=== PATIENT | male | born 1975 | race Hispanic/Latino ===

== ENCOUNTER 2017-12-26 01:33 | Emergency (ER) | payer OTHER ==
[2017-12-26] MEDS ORDERED: LIDOCAINE VISCOUS 2% SOLN 15 ML UDC ONE (03:08)
[2017-12-26] MEDS ORDERED: MAGNE/ALUM HYDROXD 30 ML UCUP ONE (03:08)
[2017-12-26 03:12] LABS: Absolute Lymphocytes (CBC) 1.7 K/uL (0.7-4.9); Absolute Monocytes 0.7 K/uL (0.1-1.3); Absolute Neutrophil 5.2 K/uL (1.8-8.0); Basophils % 0.8 % (0-1.3); Eosinophils % 3.2 % (0-4.4); Hematocrit 45.6 % (39.6-49.0); Lymphocytes % 21.1 % (15.3-44.8); MCH 31.2 pg (27.0-35.0); MCV 93.7 fL (80-100); MPV 10.9 fL (7.6-11.3); RBC Red Blood Cell Count 4.86 M/uL (4.33-5.43)
[2017-12-26 03:27] LABS: ALT/SGPT 67 IU/L (10-60); AST/SGOT 31 IU/L (10-42); Alkaline Phosphatase 65 IU/L (42-121); Amylase Level 92 U/L (28-100); BUN Blood Urea Nitrogen 16 mg/dL (6-20); Bicarbonate 27 mEq/L (21-31); Bilirubin Direct 0.1 mg/dL (0-0.2); Bilirubin Total 0.6 mg/dL (0.3-1.2); Glucose Level 111 mg/dL (65-120); Lipase 33 U/L (22-51); Potassium 3.9 mEq/L (3.6-5.0); Protein, Total 6.8 g/dL (6.0-8.3); Sodium Level 138 mEq/L (135-145)
[2017-12-26 03:41] LABS: Urine Bacteria <20 /HPF (NONE SEEN); Urine Culture Reflex Order NOT NEEDED; Urine RBC NONE SEEN /HPF (NONE SEEN)
[2017-12-26 03:42] LABS: Urine Blood NEGATIVE (NEG); Urine Glucose NEGATIVE (NEG); Urine Protein NEGATIVE (NEG); Urine pH 6.5 (5.0-7.0)
--- NOTE | 2017-12-26 04:16 | ER ---
Nurse's Notes [facility] Name: Yovani Barr Age: 42 yrs Sex: Male : 1975 Arrival Date: 12/26/2017 Time: 01:43 Bed 13 Private MD: Diagnosis: Gastritis, unspecified, without bleeding Presentation: 12/26 01:56 Presenting complaint: Patient states: upper abd pain that radiates to back since aa1 yesterday afternoon. Denies N/V/D. Reports hx of ulcers. Transition of care: patient was not received from another setting of care. Onset of symptoms was December 25, 2017. Care prior to arrival: None. 01:56 Method Of Arrival: Ambulatory aa1 01:56 Acuity: MICHEL 3 aa1 Triage Assessment: 01:57 General: Appears in no apparent distress. comfortable, Behavior is calm, cooperative, aa1 appropriate for age. Historical: - Allergies: 01:57 No Known Allergies; aa1 - Home Meds: 01:57 lisinopril 10 mg Oral tab 1 tab once daily [Active]; omeprazole 40 mg Oral cpDR 1 cap aa1 once daily [Active]; - PMHx: 01:57 GERD; Hypertension; aa1 - PSHx: 01:57 None; aa1 - Immunization history:: Flu vaccine is not up to date. - Social history:: Smoking status: Patient uses tobacco products, smokes one-half pack cigarettes per day. Screenin:30 Abuse screen: Denies threats or abuse. Nutritional screening: No deficits noted. kb1 Tuberculosis screening: No symptoms or risk factors identified. Fall Risk IV access (20 points). Assessment: 02:30 General: Appears in no apparent distress. Behavior is calm, cooperative. Pain: kb1 Complains of pain in epigastric area. Neuro: Level of Consciousness is awake, alert, obeys commands, Oriented to person, place, time, situation. Cardiovascular: Patient's skin is warm and dry. Respiratory: Airway is patent. GI: Bowel sounds present X 4 quads. Abd is soft Abd is non tender. : No signs and/or symptoms were reported regarding the genitourinary system. 03:19 Reassessment: RECD REPORT FROM SHIREEN REESE. 42YO HM P/W ABD PAIN, AWAITING RESULTS AND bp S/S RESOLUTION. 04:28 Reassessment: PT D/C HOME AMBULATORY WITH FAMILY, DX WITH GASTRITIS. bp Vital Signs: 01:57 BP 134 / 91; Pulse 63; Resp 18; Temp 98.7; Pulse Ox 98% on R/A; Weight 76.2 kg; Height aa1 5 ft. 4 in. (162.56 cm); Pain 7/10; 04:00 BP 117 / 85; Pulse 64; Resp 16; Pulse Ox 97% ; bp 01:57 Body Mass Index 28.84 (76.20 kg, 162.56 cm) aa1 ED Course: 01:43 Patient arrived in ED. es 01:57 Triage completed. aa1 01:57 Arm band placed on right wrist. Patient placed in an exam room, on a stretcher. aa1 02:08 Shireen Aguilar, HUGH is Primary Nurse. kb1 02:08 Cleveland Morgan MD is Attending Physician. tw4 02:30 Patient has correct armband on for positive identification. Bed in low position. Call kb1 light in reach. Side rails up X 1. Pulse ox on. NIBP on. 02:39 EKG done, by ED staff, reviewed by Cleveland Morgan MD. kb1 02:53 No provider procedures requiring assistance completed. Inserted saline lock: 20 gauge kb1 in right antecubital area, using aseptic technique. Blood collected. 03:19 Primary Nurse role handed off by Shireen Aguilar, HUGH bp 03:19 Shai Mckenzie, RN is Primary Nurse. bp 03:27 Report given to Shai REESE. kb1 04:28 IV discontinued, intact, bleeding controlled, No redness/swelling at site. Pressure bp dressing applied. Administered Medications: 02:54 Drug: GI Cocktail without - (Maalox Suspension 30 ml, Lidocaine Liquid 2 % 15 kb1 ml) Route: PO; 04:14 Follow up: Response: No adverse reaction bp 04:27 Drug: ProTONIX 40 mg Route: IVP; Site: right antecubital; bp 04:27 Follow up: Response: Medication administered at discharge. bp Outcome: 04:15 Discharge ordered by . tw4 04:29 Discharged to home ambulatory, with family. bp 04:29 Condition: stable 04:29 Discharge instructions given to patient, Instructed on discharge instructions, follow up and referral plans. medication usage, Demonstrated understanding of instructions, follow-up care, medications, Prescriptions given X 1. 04:29 Patient left the ED. bp Signatures: Naa Michel RN RN aa1 Mei Moreland Brian RN RN bp Cleveland Morgan MD MD tw4 Shireen Aguilar RN RN kb1
--- NOTE | 2017-12-26 04:16 | EDPHYS ---
Physician Documentation [facility] Name: Yovani Barr Age: 42 yrs Sex: Male : 1975 Arrival Date: 12/26/2017 Time: 01:43 Bed 13 Private MD: ED Physician Cleveland Morgan HPI: 12/26 02:58 This 42 yrs old Male presents to ER via Ambulatory with complaints of tw4 Abdominal Pain, Back Pain. 02:58 The patient presents with abdominal pain. The patient presents with abdominal pain in tw4 the epigastric area. Onset: The symptoms/episode began/occurred today. The symptoms do not radiate. Associated signs and symptoms: none. The symptoms are described as sharp. Modifying factors: The symptoms are alleviated by nothing, the symptoms are aggravated by alcohol. The patient has not experienced similar symptoms in the past. Historical: - Allergies: 01:57 No Known Allergies; aa1 - Home Meds: 01:57 lisinopril 10 mg Oral tab 1 tab once daily [Active]; omeprazole 40 mg Oral cpDR 1 cap aa1 once daily [Active]; - PMHx: 01:57 GERD; Hypertension; aa1 - PSHx: 01:57 None; aa1 - Immunization history:: Flu vaccine is not up to date. - Social history:: Smoking status: Patient uses tobacco products, smokes one-half pack cigarettes per day. ROS: 02:58 Constitutional: Negative for fever, chills, and weight loss, Eyes: Negative for injury, tw4 pain, redness, and discharge, Cardiovascular: Negative for chest pain, palpitations, and edema, Respiratory: Negative for shortness of breath, cough, wheezing, and pleuritic chest pain. 02:58 MS/Extremity: Negative for injury and deformity, Skin: Negative for injury, rash, and discoloration, Neuro: Negative for headache, weakness, numbness, tingling, and seizure. 02:58 Abdomen/GI: Positive for abdominal pain, Negative for nausea and vomiting, nausea, vomiting, and diarrhea, black/tarry stool, rectal bleeding. 02:58 Back: Positive for pain at rest, Negative for injury or acute deformity, decreased range of motion, pain with movement, radiated pain. Exam: 02:58 Constitutional: This is a well developed, well nourished patient who is awake, alert, tw4 and in no acute distress. Head/Face: Normocephalic, atraumatic. Chest/axilla: Normal chest wall appearance and motion. Nontender with no deformity. No lesions are appreciated. Cardiovascular: Regular rate and rhythm with a normal S1 and S2. No gallops, murmurs, or rubs. Normal PMI, no JVD. No pulse deficits. Respiratory: Lungs have equal breath sounds bilaterally, clear to auscultation and percussion. No rales, rhonchi or wheezes noted. No increased work of breathing, no retractions or nasal flaring. 02:58 Back: No spinal tenderness. No costovertebral tenderness. Full range of motion. MS/ Extremity: Pulses equal, no cyanosis. Neurovascular intact. Full, normal range of motion. Neuro: Awake and alert, GCS 15, oriented to person, place, time, and situation. Cranial nerves II-XII grossly intact. Motor strength 5/5 in all extremities. Sensory grossly intact. Cerebellar exam normal. Normal gait. 02:58 Abdomen/GI: Inspection: abdomen appears normal, Bowel sounds: normal, Palpation: moderate abdominal tenderness, in the epigastric area. 04:13 ECG was reviewed by the Attending Physician. tw4 Vital Signs: 01:57 BP 134 / 91; Pulse 63; Resp 18; Temp 98.7; Pulse Ox 98% on R/A; Weight 76.2 kg; Height aa1 5 ft. 4 in. (162.56 cm); Pain 7/10; 04:00 BP 117 / 85; Pulse 64; Resp 16; Pulse Ox 97% ; bp 01:57 Body Mass Index 28.84 (76.20 kg, 162.56 cm) aa1 MDM: 02:08 Patient medically screened. tw4 04:13 Differential diagnosis: coronary artery disease, Cholelithiasis, gastritis, tw4 gastroesophageal reflux disease, non-specific abd pain, pancreatitis, Peptic Ulcer Disease, Perf. Duodenal Ulcer, Perf. Gastric Ulcer. Data reviewed: vital signs, nurses notes. Data interpreted: equipment monitor phototypesetting: rhythm is normal sinus rhythm, Pulse oximetry: Interpretation: normal. Counseling: I had a detailed discussion with the patient and/or guardian regarding: the historical points, exam findings, and any diagnostic results supporting the discharge/admit diagnosis, lab results. Medication response: GI Cocktail relieved the patient's pain. The symptoms have resolved. Response to treatment: the patient's symptoms have resolved after treatment, and as a result, I will discharge patient. Special discussion: I discussed with the patient/guardian in detail that at this point there is no indication for admission to the hospital. It is understood, however, that if the symptoms persist or worsen the patient needs to return immediately for re-evaluation. 12/26 02:25 Order name: Amylase, Serum; Complete Time: 04:13 4 12/26 02:25 Order name: Basic Metabolic Panel; Complete Time: 04:12/26 02:25 Order name: CBC with Diff; Complete Time: 04: tw12/26 02:25 Order name: Creatinine for Radiology; Complete Time: 04:12/26 02:25 Order name: Hepatic Function; Complete Time: 04:12/26 02:25 Order name: Lipase; Complete Time: 04:13 tw12/26 02:25 Order name: Urine Microscopic Only; Complete Time: 04:12/26 02:25 Order name: IV Saline Lock; Complete Time: 02:54 tw4 12/26 02:25 Order name: Labs collected and sent; Complete Time: 02:54 tw12/26 02:26 Order name: Urine Dipstick--Ancillary (enter results); Complete Time: 04:13 em1 12/26 02:28 Order name: Troponin (emerg Dept Use Only); Complete Time: 04:13 12/26 02:25 Order name: Urine Dipstick-Ancillary (obtain specimen); Complete Time: 02:26 tw4 EC:13 Rate is 66 beats/min. Rhythm is regular. QRS [place] is Normal. OH interval is normal. QRS tw4 interval is normal. QT interval is normal. No Q waves. T waves are Normal. No ST changes noted. Clinical impression: Normal ECG and No evidence of ischemia. Interpreted by me. Reviewed by me. Administered Medications: 02:54 Drug: GI Cocktail without - (Maalox Suspension 30 ml, Lidocaine Liquid 2 % 15 kb1 ml) Route: PO; 04:14 Follow up: Response: No adverse reaction bp 04:27 Drug: ProTONIX 40 mg Route: IVP; Site: right antecubital; bp 04:27 Follow up: Response: Medication administered at discharge. bp Disposition: 12/26/17 04:15 Discharged to Home. Impression: Gastritis, unspecified, without bleeding. - Condition is Stable. - Discharge Instructions: Gastritis, Adult. - Prescriptions for Protonix 40 mg Oral Tablet - take 1 tablet by ORAL route once daily; 30 tablet. - Medication Reconciliation Form, Thank You Letter, Antibiotic Education, Prescription Opioid Use form. - Follow up: Private Physician; When: As needed; Reason: If symptoms return, Recheck today's complaints, Continuance of care, Re-evaluation by your physician. - Problem is an ongoing problem. - Symptoms have improved. Signatures: Dispatcher [employer] EDMS Naa Michel RN RN aa1 Ceasar Myers em1 Shai Mckenzie RN RN bp Cleveland Morgan MD MD tw4 Diana Aguilar RN RN kb1 Corrections: (The following items were deleted from the chart) 02:26 02:26 Urine Dipstick-Ancillary ordered. em1 em1
[2017-12-26 04:37] VITALS: TEMP 98.7
[2017-12-26 04:38] VITALS: BP 117/85; O2SAT 97
[2017-12-26] MEDS ORDERED: PANTOPRAZOLE 40 MG INJ ONE (04:40)
--- NOTE | 2017-12-26 12:02 | EKG ---
Test Date: 2017-12-26 Test Time: 02:39:04 Podiatric Medicine Doctor: JUJU MEASUREMENT RESULTS: Intervals: Rate: 66 WV: 198 QRSD: 86 QT: 374 QTc: 392 [place]: P: -6 WV: 198 QRS: 24 T: 8 INTERPRETIVE STATEMENTS: Normal sinus rhythm Normal ECG Compared to ECG 11/07/2017 17:42:12 Prolonged QT interval no longer present Electronically Signed On 12-26-17 12:02:11 CDT by Prosper Riojas
== END 2017-12-26 04:29 | disposition home or self-care (01) ==
LOC: ER 01:33
DX: K29.70 Gastritis, unspecified, without bleeding (principal); I10 Essential (primary) hypertension; K21.9 Gastro-esophageal reflux disease without esophagitis; F17.210 Nicotine dependence, cigarettes, uncomplicated
CPT/HCPCS: 36415; 80048; 80076; 81003; 81015; 82150; 83690; 84484; 85025; 93005; 96374; 99284; C9113

== ENCOUNTER 2023-08-09 12:15 | Emergency (ER) | payer OTHER ==
--- OUTSIDE RECORDS SUMMARY | 2023-08-09 12:18 | XMS REPORT | Continuity of Care Document ---
:1975 Author Organization [facility] t Address [address] [place] [address] Care Team Providers Name Role Phone Unavailable Unavailable Unavailable Problems This patient has no known problems. Allergies, Adverse Reactions, Alerts This patient has no known allergies or adverse reactions. Medications This patient has no known medications. Procedures This patient has no known procedures. Encounters Start End Encounter Admission Attending Care Care Encounter Source Date/Time Date/Time Type Type Clinicians Facility Department ID 2023-01-24 2023-01-24 Outpatient SFA SFA [id number] [place] 10:48:36 10:48:36 [id number] [facility] [place] 2023-01-10 2023-01-10 Outpatient SFA SFA [id number] [place] 09:14:17 09:14:17 0422 [facility] [place] 2023-01-03 2023-01-03 Outpatient SFA SFA [id number] [place] 09:53:56 09:53:56 [id number] [facility] [place] 2022-12-20 2022-12-20 Outpatient SFA SFA [id number] [place] 09:29:59 09:29:59 [id number] [facility] 2022-12-18 2022-12-18 Outpatient SFA SFA [id number] [place] 08:39:33 08:39:33 0330 [facility] [place] 2022-12-11 2022-12-11 Outpatient SFA SFA [id number] [place] 14:35:57 14:35:57 [id number] [facility] 2022-12-10 2022-12-10 Outpatient SFA SFA [id number] [place] 16:22:37 16:22:37 [id number] [facility] Results Test Description Test Time Test Comments Results Result Comments Source [facility] 2022-12-22 02:40:22 Test Item Value Reference Range Interpretation Comme nts TESTOSTERONE (test code = 295 NG/DL 300-890 L * [facility] has important pathology 2830) staff changes e ffective 11/19/2022. New patholo gy staff will provide uninterrupted, excellent patient care and clinical c onsultation. See URL: [email or web address]. UNLESS OTHERWIS E INDICATED, ALL TESTING PERFORM ED AT CLINICAL PATHOLOGY [facility]. [address] [place] [address] CLAM GROWER: CASA LEYVA M.D. CLIA NUMBER [id number] CAP ACCREDITATION N O. [id number] 06:52:57 Test Item Value Reference Range Interpretation Comments TESTOSTERONE (test 347 NG/DL 300-[address] [facility] has important code = 2830) pathology staff changes effecti ve 11/19/2022. New pathology staff will provide uninter rupted, excellent patie nt care and clinical consultation. S ee URL: [email or web address]. UNLES S OTHERWISE INDIC ATED, ALL TESTING PER FORMED AT CLINICAL [facility] [employer], [facility]. [address] [place] [address] [facility] DIRECTOR: CASA LEYVA M.D. C CARLITA NUMBER [id number] CAP ACCREDITATION N O. [id number] LIPID [id number] 06:07:26 Test Item Value Reference Range Interpretation Comments CHOLESTEROL (test 136 MG/DL <200 code = 2210) TRIGLYCERIDES (test 52 MG/DL <150 code = 2232) HDL CHOLESTEROL (test 54 MG/DL >39 code = 2220) CALC LDL CHOL (test 69 MG/DL <100 NOTE: C ALCULATED LDL code = 2237) IS BASED ON RUTH-HELLER METHOD WHICHINCLUDES ADJUSTABLE TRIGLYCERIDE:VL DL CHOLESTEROL RAT IO.THIS FACTOR VARIES B Y MEASURED TRIGLY CERIDE AND NON-HDLCHOL ESTEROL CONCENTRATIONS WITH INCREASED CALCU LATED LDL SEENIN HIGH ER TRIGLYCERIDE OR LOWER NON-HDL SPECIME NS. FOR MOREINFORMATION , SEE CLIENT ANNOUNCE MENT AT [email or web address] RATIO LDL/HDL 1.28 RATIO <3.55 (test code = 2238) COMPREHENSIVE METABOLIC [id number] 06:07:26 Test Item Value Reference Range Interpretation Comments GLUCOSE (test code = 105 MG/DL 70-99 H 2216) BUN (test code = 9 MG/DL 6-20 2207) CREATININE (test 0.89 MG/DL 0.80-1.40 code = 2214) eGFR (2020 CKD-EPI) 106 >60 (test code = 21925) ML/MIN/1.73 CALC BUN/CREAT (test 10 RATIO 6-28 code = 2235) SODIUM (test code = 142 MEQ/L 356-292 5317) POTASSIUM (test code 4.4 MEQ/L 3.5-5.4 = 2227) CHLORIDE (test code 105 MEQ/L 95-107 = 2214) CARBON DIOXIDE (test 25 MEQ/L 19-31 code = 220) CALCIUM (test code = 9.5 MG/DL 8.5-10.5 2208) PROTEIN, TOTAL (test 7.2 G/DL 6.1-8.3 code = 222) ALBUMIN (test code = 4.8 G/DL 3.5-5.2 2200) CALC GLOBULIN (test 2.4 G/DL 1.9-3.7 code = 2240) CALC A/G RATIO (test 2.0 RATIO 1.0-2.6 code = 223) BILIRUBIN, TOTAL 0.4 MG/DL See_Comment [Automated message] (test code = 2207) The syste m which generated this result transmit addy reference range : <=1.2. The refe rence range was not u sed to interpret th is result as normal/abnormal . ALKALINE PHOSPHATASE 68 U/L 40-118 (test code = 2204) AST (test code = 253 U/L 9-50 H 2217) ALT (test code = 517 U/L 5-50 H 2218) VITAMIN D, 25 [id number] 05:36:35 Test Item Value Reference Range Interpretation Comments VITAMIN D, 25 40 NG/ML SEE BELOW EFFECTIVE 09/29/2022, OH (test code PLEASE NOTE NE W METHODOLOGY = 4958) IS ELECTROCH EMILUMINESCENCE BINDING ASSAY. NOTE: 25-HYDROXYVITAM IN D ASSAY INCLUDES 25-HYD ROXYVITAMIN D2 AND D3. I NTERPRETIVE RANGES PED IATRIC (<17 YEARS) . . . . . . . . . . . NG/ML 20-100ADU LT: INSUFFICIENT . . . . . . . . . . . . . . NG/ML <20 SUBOP TIMAL . . . . . . . . . . . . . . . NG/ML 20-29 OPTIMAL . . . . . . . . . . . . . . . . . NG/ML 30-100 [id number] 05:36:13 Test Item Value Reference Range Interpretation Comments TESTOSTERONE (test code = 2830) 270 NG/DL 300-890 L PSA, [id number] 05:35:34 Test Item Value Reference Range Interpretation Comments PSA, TOTAL 0.42 NG/ML See_Comment NOTE: Methodol ogy is Iram (test code = Mauro Electroch emiluminescence 2606) Immunoassay tra ceable to WHO reference stand zackary 96/760. [facility] has importa nt pathology staff changes e ffective 11/19/2022. New pathology staff will prov victorino uninterrupted, excellent patient care an d clinical consultation. S ee URL: [email or web address]. UNLESS OTHERWIS E INDICATED, ALL TESTING PERFORM ED AT CLINICAL PATHOLOGY [facility]. [address] [place] [id number] LABORATORY DIRE CTOR: Lesli HERNANDEZ CARLITA NUMBER [id number] [place]. [id number] [A utomated message] The sy stem which generated this result transmitted ref erence range: <=4.00. The ref erence range was not used to int erpret this result as amparo l/abnormal. CBC W/AUTO DIFF WITH [id number] 04:20:46 Test Item Value Reference Range Interpretation Comments WBC (test code = 5.0 K/UL 3.5-11.0 1001) RBC (test code = 4.52 M/UL 4.50-6.10 1002) HEMOGLOBIN (test code 14.7 G/DL 13.5-17.0 = 1003) HEMATOCRIT (test code 43.3 % 40.0-51.0 = 1004) MCV (test code = 95.8 fL 80.0-99.0 1005) MCH (test code = 32.5 PG 25.0-33.0 1006) MCHC (test code = 33.9 G/DL 31.0-36.0 1007) RDW (test code = 14.3 % 11.5-15.0 1038) NEUTROPHILS (test 41.1 % code = 1008) LYMPHOCYTES (test 34.1 % code = 1010) MONOCYTES (test code 20.4 % = 1011) EOSINOPHILS (test 3.0 % code = 1012) BASOPHILS (test code 1.0 % = 1013) IMMATURE GRANULOCYTES 0.4 % (test code = 1036) NUCLEATED RBCS (test 0.0 /100 WBC'S See_Comment [Aut omated code = 1065) message] The sy stem which generated this result transmitted reference range : 0.0. The refere nce range was not u sed to interpret th is result as normal/abnormal . PLATELET COUNT (test 190 K/UL 130-400 code = 1015) ABSOLUTE NEUTROPHILS 2.07 K/UL 1.50-7.50 (test code = 1066) ABSOLUTE LYMPHOCYTES 1.72 K/UL 1.00-4.00 (test code = 1067) ABSOLUTE MONOCYTES 1.03 K/UL 0.20-1.00 H (test code = 1068) ABSOLUTE EOSINOPHILS 0.15 K/UL 0.00-0.50 (test code = 1040) ABSOLUTE BASOPHILS 0.05 K/UL 0.00-0.20 (test code = 1069) ABS IMMATURE 0.02 K/UL 0.00-0.10 GRANULOCYTES (test code = 1020) ABS NUCLEATED RBCS 0.00 K/UL 0.00-0.11 (test code = 53783) HEMOGLOBIN [id number] 04:14:31 Test Item Value Reference Range Interpretation Comments HEMOGLOBIN A1c (test code = 72126) 5.4 % 4.2-5.6
[2023-08-09 13:26] LABS: Hematocrit 44.3 % (39.6-49.0); MPV 9.4 fL (7.6-11.3); Platelets 169 thou/uL (152-406); RBC Red Blood Cell Count 4.61 M/uL (4.33-5.43)
[2023-08-09] MEDS ORDERED: AMLODIPINE 10 MG TAB ONE (13:27)
[2023-08-09 13:34] LABS: Protime INR 0.98
[2023-08-09 13:35] LABS: Specific Gravity < 1.005 (1.005-1.030); Urine Bacteria None Seen /HPF (<20); Urine Bilirubin NEGATIVE (Negative); Urine Blood Negative (Negative); Urine Clarity Turbid (Clear); Urine Color Colorless (Yellow); Urine Glucose NEGATIVE (Negative); Urine Protein NEGATIVE (Negative); Urine RBC <5 /HPF (None Seen); Urine Urobilinogen Normal (Normal)
[2023-08-09 13:49] LABS: Barbiturates NEGATIVE (NEGATIVE); Benzodiazepines NEGATIVE (NEGATIVE); Cocaine NEGATIVE (NEGATIVE); METHAMPHETAM NEGATIVE (NEGATIVE); Methadone NEGATIVE (NEGATIVE); Opiates NEGATIVE (NEGATIVE); Phencyclidine NEGATIVE (NEGATIVE); THC Cannibis NEGATIVE (NEGATIVE)
[2023-08-09 13:50] LABS: Albumin 4.2 g/dL (3.4-5.0); Bilirubin Direct 0.2 mg/dL (0-0.2); Bilirubin Indirect, Calculated 0.2 mg/dL (0.2-0.8); Bilirubin Total 0.4 mg/dL (0.2-1.0); Magnesium 2.3 mg/dL (1.6-2.4); Potassium 3.7 mEq/L (3.5-5.1); Troponin High Sensitivity 4.9 pg/mL (<58.9)
--- NOTE | 2023-08-09 13:59 | RAD REPORT ---
EXAM DESCRIPTION: RAD - Chest Single View - 08/09/2023 1:52 pm CLINICAL HISTORY: COUGH Chest pain. COMPARISON: <Comparisons> FINDINGS: Portable technique limits examination quality. The lungs are grossly clear. The heart is normal in size. No displaced fractures. IMPRESSION: No acute intrathoracic process suspected.
--- NOTE | 2023-08-09 14:52 | ER ---
Nurse's Notes [facility] Name: Yovani Barr Age: 48 yrs Sex: Male : 1975 Arrival Date: 08/09/2023 Time: 12:15 Bed 16 Private MD: Diagnosis: Essential (primary) hypertension;Alcohol abuse, uncomplicated;Insomnia Presentation: 08/09 13:04 Chief complaint: Patient states: he has been having body cramps for 2-3 days, and is ap3 having high blood pressure. patient reports that is systolic BP was in the 170's this morning. Patient reports intermittent nausea, and a headache of which he rates the pain to be a 6/10 on the pain scale. Coronavirus screen: At this time, the client does not indicate any symptoms associated with coronavirus-19. Ebola Screen: No symptoms or risks identified at this time. Initial Sepsis Screen: Does the patient meet any 2 criteria? No. Patient's initial sepsis screen is negative. Does the patient have a suspected source of infection? No. Patient's initial sepsis screen is negative. Risk Assessment: Do you want to hurt yourself or someone else? Patient reports no desire to harm self or others. Onset of symptoms was August 07, 2023. 13:04 Method Of Arrival: Ambulatory ap3 13:04 Acuity: MICHEL 3 ap3 Triage Assessment: 13:06 General: Appears in no apparent distress. Behavior is calm, cooperative, appropriate ap3 for age. Pain: Complains of pain in face. Neuro: Level of Consciousness is awake, alert, obeys commands, Oriented to person, place, time, situation, Appropriate for age. Respiratory: Airway is patent Respiratory effort is even, unlabored, Respiratory pattern is regular, symmetrical. GI: Reports nausea. Historical: - Allergies: 13:06 No Known Allergies; ap3 - Home Meds: 13:06 lisinopril oral [Active]; omeprazole 40 mg Oral cpDR 1 cap once daily [Active]; ap3 - PMHx: 13:06 GERD; Hypertension; ap3 - Immunization history:: Adult Immunizations up to date. - Social history:: Smoking status: Patient denies any tobacco usage or history of. - Family history:: not pertinent, heavy etoh seconday to high stress. Screenin:07 [facility] ED Fall Risk Assessment (Adult) History of falling in the last 3 months, ap3 including since admission No falls in past 3 months (0 pts). Abuse screen: Denies threats or abuse. Nutritional screening: No deficits noted. Tuberculosis screening: No symptoms or risk factors identified. Assessment: 13:43 General: Appears in no apparent distress. Behavior is calm, cooperative. Pain: ld1 Complains of pain in anterior aspect of left upper chest and left breast Quality of pain is described as pinching. Neuro: Level of Consciousness is awake, alert, obeys commands, Oriented to person, place, time, situation. Cardiovascular: Capillary refill < 3 seconds Patient's skin is warm and dry. Rhythm is sinus rhythm Chest pain. Respiratory: Airway is patent Respiratory effort is even, unlabored, Respiratory pattern is regular, symmetrical. GI: Abdomen is flat, non-distended. : No signs and/or symptoms were reported regarding the genitourinary system. EENT: No signs and/or symptoms were reported regarding the EENT system. Derm: No signs and/or symptoms reported regarding the dermatologic system. Musculoskeletal: No signs and/or symptoms reported regarding the musculoskeletal system. 14:22 Reassessment: Patient appears in no apparent distress at this time. Patient and/or ld1 family updated on plan of care and expected duration. Pain level reassessed. Patient is alert, oriented x 3, equal unlabored respirations, skin warm/dry/pink. Vital Signs: 13:04 BP 172 / 110; Pulse 74; Resp 17; Temp 98.4; Pulse Ox 100% ; Weight 81.65 kg; Pain 6/10; ap3 13:43 BP 146 / 101; Pulse 63; Pulse Ox 99% on R/A; ld1 14:22 BP 135 / 101; Pulse 61; Pulse Ox 99% on R/A; ld1 13:04 Pain Scale: Adult ap3 ED Course: 12:16 Patient arrived in ED. rg4 13:06 Triage completed. ap3 13:07 Arm band placed on right wrist. ap3 13:08 Yogi Michael MD is Attending Physician. mer 13:21 April Vernon RN is Primary Nurse. ld1 13:22 Inserted saline lock: 20 gauge in right antecubital area, using aseptic technique. ld1 Blood collected. 13:22 CBC with Diff Sent. ld1 13:22 LFT's Sent. ld1 13:22 Magnesium Sent. ld1 13:22 NT PRO-BNP Sent. ld1 13:22 PT-INR Sent. ld1 13:22 Basic Metabolic Panel Sent. ld1 13:22 Troponin HS Sent. ld1 13:23 Lipase Sent. ld1 13:28 UDS Sent. ld1 13:28 Urinalysis w/ reflexes Sent. ld1 13:28 Lipase Sent. ld1 13:28 Basic Metabolic Panel Sent. ld1 13:28 CBC with Diff Sent. ld1 13:28 LFT's Sent. ld1 13:28 Magnesium Sent. ld1 13:28 NT PRO-BNP Sent. ld1 13:28 PT-INR Sent. ld1 13:28 Troponin HS Sent. ld1 13:43 Patient has correct armband on for positive identification. Bed in low position. Call ld1 light in reach. Side rails up X2. Provided Education on: need for cardiac monitoring. Client placed on continuous cardiac and pulse oximetry monitoring. NIBP monitoring applied. pvc monitor on. Door closed. Noise minimized. 13:43 No provider procedures requiring assistance completed. ld1 13:54 XRAY Chest (1 view) In Process Unspecified. EDIL 14:50 Sagar Cornejo DO is Referral Physician. [facility] 14:50 Ye Guy MD is Referral Physician. [facility] 15:06 IV discontinued, intact, bleeding controlled, No redness/swelling at site. Pressure ld1 dressing applied. Administered Medications: 13:22 Drug: Norvasc PO 10 mg PO once Route: PO; ld1 Medication: 13:43 VIS not applicable for this client. ld1 Outcome: 14:51 Discharge ordered by . mer 15:05 Discharged to home ambulatory, with family, ld1 15:05 Condition: stable 15:05 Discharge instructions given to patient, family, Instructed on discharge instructions, follow up and referral plans. medication usage, Demonstrated understanding of instructions, follow-up care, medications, Prescriptions given X 3, 15:06 Patient left the ED. ld1 Signatures: Dispatcher [employer] Yogi Vuong MD MD cha Garcia, Rubi rg4 Claudette Morrow RN RN ap3 April Vernon RN RN ld1 Corrections: (The following items were deleted from the chart) 13:07 13:04 Chief complaint: Patient states: he has been having body cramps for 2-3 days, and ap3 is having high blood pressure. patient reports that is systolic BP was in the 170's this morning. Patient reports intermittent nausea ap3
--- NOTE | 2023-08-09 14:52 | EDPHYS ---
Physician Documentation [facility] Name: Yovani Barr Age: 48 yrs Sex: Male : 1975 Arrival Date: 08/09/2023 Time: 12:15 Bed 16 Private MD: ED Physician Yogi Michael HPI: 08/09 14:43 This 48 yrs old Male presents to ER via Ambulatory with complaints of High mer Blood Pressure. 14:43 This 48 yrs old Male presents to ER via Ambulatory with complaints of High mer Blood Pressure. 14:43 The patient has elevated blood pressure and discovered this at home, with a home mer device. Onset: The symptoms/episode began/occurred 5 day(s) ago. Modifying factors: The symptoms are aggravated by activity, The symptoms are alleviated by remaining still. Associated signs and symptoms: The patient has no apparent associated signs or symptoms. Severity of symptoms: At its worst the blood pressure was mild, moderate, in the emergency department the blood pressure is unchanged. The patient has experienced similar episodes in the past, multiple times. Historical: - Allergies: 13:06 No Known Allergies; ap3 - Home Meds: 13:06 lisinopril oral [Active]; omeprazole 40 mg Oral cpDR 1 cap once daily [Active]; ap3 - PMHx: 13:06 GERD; Hypertension; ap3 - Immunization history:: Adult Immunizations up to date. - Social history:: Smoking status: Patient denies any tobacco usage or history of. - Family history:: not pertinent, heavy etoh seconday to high stress. ROS: 14:44 Constitutional: Negative for fever, chills, and weight loss, Eyes: Negative for injury, mer pain, redness, and discharge, ENT: Negative for injury, pain, and discharge, Neck: Negative for injury, pain, and swelling, Cardiovascular: Negative for chest pain, palpitations, and edema, Respiratory: Negative for shortness of breath, cough, wheezing, and pleuritic chest pain, Abdomen/GI: Negative for abdominal pain, nausea, vomiting, diarrhea, and constipation, Back: Negative for injury and pain, : Negative for injury, bleeding, discharge, and swelling, MS/Extremity: Negative for injury and deformity, Skin: Negative for injury, rash, and discoloration, Neuro: Negative for headache, weakness, numbness, tingling, and seizure, Psych: Negative for depression, anxiety, suicide ideation, homicidal ideation, and hallucinations, Allergy/Immunology: Negative for hives, rash, and allergies, Endocrine: Negative for neck swelling, polydipsia, polyuria, polyphagia, and marked weight changes, Hematologic/Lymphatic: Negative for swollen nodes, abnormal bleeding, and unusual bruising, Exam: 14:44 Constitutional: This is a well developed, well nourished patient who is awake, alert, mer and in no acute distress. Head/Face: Normocephalic, atraumatic. Eyes: Pupils equal round and reactive to light, extra-ocular motions intact. Lids and lashes normal. Conjunctiva and sclera are non-icteric and not injected. Cornea within normal limits. Periorbital areas with no swelling, redness, or edema. ENT: Nares patent. No nasal discharge, no septal abnormalities noted. Tympanic membranes are normal and external auditory canals are clear. Oropharynx with no redness, swelling, or masses, exudates, or evidence of obstruction, uvula midline. Mucous membranes moist. Neck: Trachea midline, no thyromegaly or masses palpated, and no cervical lymphadenopathy. Supple, full range of motion without nuchal rigidity, or vertebral point tenderness. No Meningismus. Chest/axilla: Normal chest wall appearance and motion. Nontender with no deformity. No lesions are appreciated. Cardiovascular: Regular rate and rhythm with a normal S1 and S2. No gallops, murmurs, or rubs. Normal PMI, no JVD. No pulse deficits. Respiratory: Lungs have equal breath sounds bilaterally, clear to auscultation and percussion. No rales, rhonchi or wheezes noted. No increased work of breathing, no retractions or nasal flaring. Abdomen/GI: Soft, non-tender, with normal bowel sounds. No distension or tympany. No guarding or rebound. No evidence of tenderness throughout. Back: No spinal tenderness. No costovertebral tenderness. Full range of motion. Male : Normal genitalia with no discharge or lesions. Skin: Warm, dry with normal turgor. Normal color with no rashes, no lesions, and no evidence of cellulitis. MS/ Extremity: Pulses equal, no cyanosis. Neurovascular intact. Full, normal range of motion. Neuro: Awake and alert, GCS 15, oriented to person, place, time, and situation. Cranial nerves II-XII grossly intact. Motor strength 5/5 in all extremities. Sensory grossly intact. Cerebellar exam normal. Normal gait. Psych: Awake, alert, with orientation to person, place and time. Behavior, mood, and affect are within normal limits. 14:44 Abdomen/GI: Inspection: abdomen appears normal, Bowel sounds: normal, Palpation: abdomen is soft and non-tender, Liver: no appreciated palpable abnormalities, Hernia: not appreciated, 14:46 ECG was reviewed by the Attending Physician. [facility] Vital Signs: 13:04 BP 172 / 110; Pulse 74; Resp 17; Temp 98.4; Pulse Ox 100% ; Weight 81.65 kg; Pain 6/10; ap3 13:43 BP 146 / 101; Pulse 63; Pulse Ox 99% on R/A; ld1 14:22 BP 135 / 101; Pulse 61; Pulse Ox 99% on R/A; ld1 13:04 Pain Scale: Adult ap3 MDM: 13:08 Patient medically screened. [facility] 14:48 Differential diagnosis: hypertensive crisis, Malignant HTN. Data reviewed: vital signs, [facility] nurses notes, lab test result(s), EKG, radiologic studies, plain films. Consideration of Admission/Observation Escalation of care including admission/observation considered. I considered the following discharge prescriptions or medication management in the emergency department Medications were administered in the Emergency Department. See MAR. Independent interpretation of the following test(s) in the Emergency Department EKG: See my EKG interpretation above. Test considered but Not performed: CT: no ct chest, no gb usg. Care significantly affected by the following chronic conditions: Hypertension, gerd, etoh abuse. Counseling: I had a detailed discussion with the patient and/or guardian regarding the historical points, exam findings, and any diagnostic results supporting the discharge/admit diagnosis, lab results, radiology results, the need for outpatient follow up, for definitive care, a research physiologist, a family practitioner. 08/09 13:10 Order name: Basic Metabolic Panel; Complete Time: 14:30 [facility] 08/09 13:10 Order name: CBC with Diff; Complete Time: 14:30 [facility] 08/09 13:10 Order name: LFT's; Complete Time: 14:30 [facility] 08/09 13:10 Order name: Magnesium; Complete Time: 14:30 [facility] 08/09 13:10 Order name: NT PRO-BNP; Complete Time: 14:30 08/09 13:10 Order name: PT-INR; Complete Time: 14:30 08/09 13:10 Order name: Troponin HS; Complete Time: 14:30 08/09 13:10 Order name: Urinalysis w/ reflexes; Complete Time: 14:30 08/09 13:10 Order name: Lipase; Complete Time: 14:30 08/09 13:10 Order name: UDS; Complete Time: 14:30 08/09 13:10 Order name: XRAY Chest (1 view); Complete Time: 14:30 08/09 13:10 Order name: EKG; Complete Time: 13:10 [facility] 08/09 13:10 Order name: Cardiac monitoring; Complete Time: 13:12 08/09 13:10 Order name: EKG - Nurse/Tech; Complete Time: 13:22 08/09 13:10 Order name: IV Saline Lock; Complete Time: 13:22 [facility] 08/09 13:10 Order name: Labs collected and sent; Complete Time: 13:22 [facility] 08/09 13:10 Order name: O2 Per Protocol; Complete Time: 13:12 [facility] 08/09 13:10 Order name: O2 Sat Monitoring; Complete Time: 13:12 [facility] EC:46 Rate is 62 beats/min. Rhythm is regular. QRS Isabella is Normal. DC interval is normal. QRS mer interval is normal. QT interval is normal. No Q waves. T waves are Normal. No ST changes noted. Clinical impression: Normal ECG and No evidence of ischemia. Interpreted by me. Reviewed by me. Administered Medications: 13:22 Drug: Norvasc PO 10 mg PO once Route: PO; ld1 Disposition Summary: 08/09/23 14:51 Discharge Ordered Notes: Location: Home mer Problem: new mer Symptoms: have improved mer Condition: Stable mer Diagnosis - Essential (primary) hypertension mer - Alcohol abuse, uncomplicated mer - Insomnia mer Followup: mer - With: Private Physician - When: 2 - 3 days - Reason: Recheck today's complaints, Continuance of care, Re-evaluation by your physician Followup: mer - With: Sagar Cornejo, - When: 2 - 3 days - Reason: Recheck today's complaints, Re-evaluation by your physician Followup: mer - With: Ye Guy MD - When: 2 - 3 days - Reason: Recheck today's complaints, Re-evaluation by your physician Discharge Instructions: - Discharge Summary Sheet mer - Alcohol Use Disorder mer - Hypertension, Adult mer - Insomnia mer - Hypertension, Adult, [id number] mer - Alcohol Abuse and Nutrition mer - How to Take Your Blood Pressure, [id number] mer - Aspirin and Your Heart mer - Managing Your Hypertension [facility] Forms: - Medication Reconciliation Form [facility] - Thank You Letter [facility] - Antibiotic Education mer - Prescription Opioid Use mer - Patient Portal Instructions [facility] - Leadership Thank You Letter [facility] Prescriptions: - Benadryl 25 mg Oral capsule - take 2 capsule ORAL route At bedtime As needed; 30 tablet; Refills: 0, Product [facility] Selection Permitted - Norvasc 5 mg Oral Tablet - take 1 tablet ORAL route once daily; 20 tablet; Refills: 0, Product Selection [facility] Permitted - Lisinopril 20 mg Oral tablet - take 1 tablet ORAL route every 12 hours; 42 tablet; Refills: 0, Product [facility] Selection Permitted Signatures: Dispatcher [employer] Yogi Vuong MD MD cha Prokisch, Amanda RN RN ap3 April Vernon RN RN ld1
[2023-08-09 16:00] VITALS: TEMP 98.4
[2023-08-09 16:02] VITALS: BP 135/101; O2SAT 99
--- NOTE | 2023-08-12 17:01 | EKG ---
Test Date: 2023-08-09 Test Time: 13:17:33 [employer]: DAVID MEASUREMENT RESULTS: Intervals: Rate: 62 IL: 194 QRSD: 84 QT: 372 QTc: 377 Mantee: P: 0 IL: 194 QRS: 79 T: 15 INTERPRETIVE STATEMENTS: Normal sinus rhythm Normal ECG Compared to ECG 12/26/2017 02:39:04 No significant changes Electronically Signed On 08-12-23 16:53:44 [employer] by Ye Guy
== END 2023-08-09 15:06 | disposition home or self-care (01) ==
LOC: ER 12:15
DX: I10 Essential (primary) hypertension (principal); F10.10 Alcohol abuse, uncomplicated; G47.00 Insomnia, unspecified; R25.2 Cramp and spasm
CPT/HCPCS: 36415; 71045; 80048; 80076; 80307; 81001; 83690; 83735; 83880; 84484; 85025; 85610; 93005; 99284